=== PATIENT | female | born 1955 | race Asian ===

== ENCOUNTER 2018-12-06 05:51 | Emergency (ER) | payer OTHER ==
[~2018-12-06] VITALS: Ht 157.5 cm; Wt 61.8 kg
[2018-12-06] MEDS ORDERED: LOSA50TA64 PO (06:03)
[2018-12-06] MEDS ORDERED: ESCI10TA PO (06:04)
[2018-12-06] MEDS ORDERED: ATOR40TA28 PO (06:04)
[2018-12-06] MEDS ORDERED: ONDANSETRON HCL 4 MG TABLET PO ONE (07:30)
[2018-12-06] MEDS ORDERED: ACETAMINOPHEN 500 MG TABLET PO ONE (07:30)
[2018-12-06] MEDS ORDERED: MAG HYDROX/AL HYDROX/SIMETH ES 30 ML SUSPENSION UDCUP PO ONE (07:30)
[2018-12-06 07:58] LABS: APPEARANCE,URINE CLEAR (CLEAR); BILIRUBIN,URINE NEGATIVE (NEGATIVE); GLUCOSE, URINE (UA) NEGATIVE (NEGATIVE); KETONES,URINE NEGATIVE (NEGATIVE); LEUKOCYTE ESTERASE ,URINE NEGATIVE (NEGATIVE); NITRATE,URINE NEGATIVE (NEGATIVE); OCCULT BLOOD,URINE NEGATIVE (NEGATIVE); PROTEIN,URINE NEGATIVE (NEGATIVE); UROBILINOGEN,URINE 0.2 mg/dL (<=1.0)
[2018-12-06 07:59] LABS: BASOPHILS % (AUTO) 0.6 % (0.0-2.0); HEMATOCRIT 38.5 % (36-46); HEMOGLOBIN 12.9 g/dL (12.0-16.0); LYMPHOCYTES # (AUTO) 1.9 K/uL (1.0-4.8); LYMPHOCYTES % (AUTO) 30.8 % (22.0-44.0); MEAN CORPUSCULAR HEMOGLOBIN 29.3 pg (26.0-34.0); MEAN CORPUSCULAR HGB CONC 33.4 G/dL (31.0-37.0); MEAN CORPUSCULAR VOLUME 88 fL (80-100); MONOCYTES # (AUTO) 0.5 K/uL (0.1-1.0); MONOCYTES % (AUTO) 8.5 % (2.0-9.0); NEUTROPHILS # (AUTO) 3.5 K/uL (1.8-7.7); NEUTROPHILS % (AUTO) 58.1 % (40.0-70.0); PLATELET COUNT (AUTO) 308 K/uL (150-450); RED CELL DISTRIBUTION WIDTH 13.9 % (11.5-14.5)
[2018-12-06 08:07] LABS: BACTERIA,URINE None Seen /HPF (None Seen); RBC,URINE None Seen /HPF (0-2); SQUAMOUS EPITHELIAL CELL,UR Few /LPF (None Seen); WBC,URINE None Seen /HPF (0-5)
[2018-12-06 08:20] LABS: ANION GAP 7 mmol/L (8-16); CALCIUM, TOTAL 8.8 mg/dL (8.8-10.5); CARBON DIOXIDE 26 mmol/L (22-29); CHLORIDE 105 mmol/L (98-107); CREATININE 0.67 mg/dL (0.60-1.30); GLOMERULAR FILTR. RATE CALC > 60 mL/min (>60); GLUCOSE,RANDOM 99 mg/dL (70-110); POTASSIUM 4.2 mmol/L (3.5-5.1); SODIUM SERUM 138 mmol/L (136-145); UREA NITROGEN, BLOOD 13 mg/dL (7-18)
[2018-12-06 08:25] LABS: ALANINE AMINOTRANSFERASE 34 U/L (12-78); ALBUMIN 3.7 g/dL (3.4-5.0); ALKALINE PHOSPHATASE 91 U/L (46-116); ASPARTATE AMINOTRANSFERASE 19 U/L (15-37); BILIRUBIN,TOTAL 0.3 mg/dL (0.1-1.0); LIPASE 187 U/L (73-393); TOTAL PROTEIN, SERUM 7.6 g/dL (6.4-8.2)
[2018-12-06 10:11] VITALS: BP 114/77
== END 2018-12-06 10:17 | disposition home or self-care (01) ==
LOC: EMS 05:55
DX: R42 Dizziness and giddiness (principal); K76.0 Fatty (change of) liver, not elsewhere classified; R10.10 Upper abdominal pain, unspecified; R06.00 Dyspnea, unspecified; R51 Headache; E78.00 Pure hypercholesterolemia, unspecified; I10 Essential (primary) hypertension; F32.9 Major depressive disorder, single episode, unspecified; Z79.899 Other long term (current) drug therapy
CPT/HCPCS: 36415; 71045; 76700; 80053; 81001; 83690; 84484; 85025; 93005; 99285; Q0162

== ENCOUNTER 2022-12-13 19:24 | Emergency (ER) | payer MEDICARE, OTHER ==
[~2022-12-13] VITALS: Ht 157.5 cm; Wt 60.5 kg
[~2022-12-13 19:24] MED LIST: ATOR40TA28 PO; ESCI-8 PO; LOSA-382 PO
[2022-12-13 19:25] VITALS: TEMP 98.2
[2022-12-13] MEDS ORDERED: PROP20TA96 PO (19:55)
[2022-12-13] MEDS ORDERED: BACL10TA PO (19:55)
[2022-12-13] MEDS ORDERED: PERTUSS(ACELL),DIPH,TET VAC/PF 0.5 ML SYRINGE IM. ONE (20:00)
[2022-12-13 20:04] VITALS: BP 163/94; PULSE 75; RESP 18
[2022-12-13] MEDS ORDERED: ACETAMINOPHEN 500 MG TABLET PO ONE (20:15)
== END 2022-12-13 22:34 | disposition home or self-care (01) ==
LOC: EMS 19:35
DX: S00.83XA Contusion of other part of head, initial encounter (principal); S80.212A Abrasion, left knee, initial encounter; S80.211A Abrasion, right knee, initial encounter; M25.561 Pain in right knee; F32.A Depression, unspecified; E78.00 Pure hypercholesterolemia, unspecified; I10 Essential (primary) hypertension; Z90.49 Acquired absence of other specified parts of digestive tract; W18.39XA Other fall on same level, initial encounter; Y93.01 Activity, walking, marching and hiking; Y92.89 Other specified places as the place of occurrence of the external cause; Y99.0 Civilian activity done for income or pay
CPT/HCPCS: 70450; 70486; 90471; 90715; 99285

== ENCOUNTER 2023-01-30 17:20 | Emergency (ER) | payer MEDICARE, OTHER ==
[~2023-01-30] VITALS: Ht 157.5 cm; Wt 60.9 kg
[~2023-01-30 17:20] MED LIST changes: +BACL10TA PO; +PROP20TA96 PO
[2023-01-30 17:24] VITALS: BP 137/94; PULSE 107; RESP 18; TEMP 98.8
[2023-01-30] MEDS ORDERED: IBUP-2070 PO (17:33)
[2023-01-30 18:04] LABS: COVID AG,FIA SOURCE NASAL SWAB
[2023-01-30 18:23] LABS: INFLUENZA TYPE A NEGATIVE FOR TYPE A (NEGATIVE); INFLUENZA TYPE B NEGATIVE FOR TYPE B (NEGATIVE)
== END 2023-01-30 18:15 | disposition home or self-care (01) ==
LOC: EMS 17:20
DX: U07.1 COVID-19 (principal); F41.9 Anxiety disorder, unspecified; F32.A Depression, unspecified; E78.00 Pure hypercholesterolemia, unspecified; I10 Essential (primary) hypertension; Z90.49 Acquired absence of other specified parts of digestive tract; Z98.890 Other specified postprocedural states
CPT/HCPCS: 99283; 87426; 87804; C9803

== ENCOUNTER 2024-11-26 21:57 | Emergency (ER) | payer MEDICARE, OTHER ==
[~2024-11-26] VITALS: Ht 157.5 cm; Wt 61.4 kg
[~2024-11-26 21:57] MED LIST changes: -ESCI-8 PO; +IBUP-2070 PO; -PROP20TA96 PO
[2024-11-26 22:36] LABS: BASOPHILS % (AUTO) 0.5 % (0.0-2.0); EOSINOPHILS % (AUTO) 3.9 % (1.0-6.0); HEMATOCRIT 38.3 % (36-46); LYMPHOCYTES # (AUTO) 2.4 K/uL (1.0-4.8); LYMPHOCYTES % (AUTO) 33.5 % (22.0-44.0); MEAN CORPUSCULAR HEMOGLOBIN 30.1 pg (26.0-34.0); MEAN CORPUSCULAR VOLUME 89 fL (80-100); MONOCYTES # (AUTO) 0.7 K/uL (0.1-1.0); MONOCYTES % (AUTO) 9.5 % (2.0-9.0); NEUTROPHILS # (AUTO) 3.8 K/uL (1.8-7.7); NEUTROPHILS % (AUTO) 52.6 % (40.0-70.0); PLATELET COUNT (AUTO) 285 K/uL (150-450); RED BLOOD CELL COUNT(AUTO) 4.32 MIL/uL (4.00-5.20); WHITE BLOOD COUNT (AUTO) 7.2 K/uL (4.5-11.0)
[2024-11-26 22:49] LABS: ANION GAP 4 mmol/L (8-16); CARBON DIOXIDE 29 mmol/L (22-29); CHLORIDE 104 mmol/L (98-107); POTASSIUM 3.7 mmol/L (3.5-5.1); SODIUM SERUM 137 mmol/L (136-145); UREA NITROGEN, BLOOD 18 mg/dL (7-18)
[2024-11-26 23:04] LABS: CALCIUM, TOTAL 8.8 mg/dL (8.8-10.5); CREATININE 0.88 mg/dL (0.60-1.30); GLOMERULAR FILTR. RATE CALC > 60 mL/min (>60); GLUCOSE,RANDOM 118 mg/dL (70-110); TROPONIN I-HIGH SENSITIVITY 7 ng/L (<51)
[2024-11-26 23:13] VITALS: TEMP 98.2
[2024-11-27 00:23] LABS: CREATINE KINASE, TOTAL ONLY 104 U/L (26-192)
[2024-11-27 00:26] LABS: TROPONIN I-HIGH SENSITIVITY 7 ng/L (<51)
[2024-11-27 00:30] LABS: PROTHROMBIN TIME 9.5 SEC (9.4-11.6)
[2024-11-27 00:31] LABS: B-TYPE NATRIURETIC PEPTIDE 7 pg/mL (0-100)
[2024-11-27] MEDS: LORazepam 1 MG TABLET PO ONE (00:44)
[2024-11-27 00:48] LABS: APPEARANCE,URINE CLEAR (CLEAR); BILIRUBIN,URINE NEGATIVE (NEGATIVE); COLOR,URINE COLORLESS (YELLOW); GLUCOSE, URINE (UA) NEGATIVE (NEGATIVE); KETONES,URINE NEGATIVE (NEGATIVE); LEUKOCYTE ESTERASE ,URINE MODERATE (NEGATIVE); NITRATE,URINE NEGATIVE (NEGATIVE); OCCULT BLOOD,URINE NEGATIVE (NEGATIVE); PH,URINE 5.5 (5.0-8.0); PROTEIN,URINE NEGATIVE (NEGATIVE); SPECIFIC GRAVITIY, URINE 1.009 (1.003-1.030); UROBILINOGEN,URINE <=1.0 mg/dL (<=1.0)
[2024-11-27 00:58] LABS: BACTERIA,URINE Rare /HPF (None Seen); RBC,URINE None Seen /HPF (0-2); SQUAMOUS EPITHELIAL CELL,UR Rare /LPF (None Seen)
[2024-11-27] MEDS: CEPHALEXIN MONOHYDRATE 500 MG CAPSULE PO ONE (02:19)
[2024-11-27 02:55] VITALS: BP 118/66; PULSE 59; RESP 13; O2SAT 98
[2024-11-27] MEDS ORDERED: CEPH-558 PO (05:08)
== END 2024-11-27 05:15 | disposition home or self-care (01) ==
LOC: EMS 21:57
DX: R00.2 Palpitations (principal); N39.0 Urinary tract infection, site not specified; F41.9 Anxiety disorder, unspecified; F32.A Depression, unspecified; I10 Essential (primary) hypertension; E78.00 Pure hypercholesterolemia, unspecified; Z90.49 Acquired absence of other specified parts of digestive tract; Z79.1 Long term (current) use of non-steroidal anti-inflammatories (NSAID); Z79.899 Other long term (current) drug therapy
CPT/HCPCS: 71045; 80048; 81001; 82550; 83880; 84484; 85025; 85610; 85730; 87086; 87147; 93005; 99283; 36415-L1; 36415-TC